=== PATIENT | female | born 1995 | race Caucasian/White ===

== ENCOUNTER 2020-02-14 12:58 | Inpatient (IN) ==
[2020-02-14] MEDS ORDERED: ONDANSETRON 4 MG/2 ML VIAL IV PRN (13:18)
[2020-02-14] MEDS ORDERED: BUTORPHANOL 2 MG/ML VIAL IV PRN (13:18)
[2020-02-14] MEDS ORDERED: DINOPROSTONE VAG GEL 10 MG SYRINGE VAG ONE (13:20)
[2020-02-14] MEDS ORDERED: LACTATED RINGERS 1,000 ML IV SCH (13:30)
[2020-02-14 13:43] LABS: Basophils % 0.2 % (0.0-0.8); Eosinophils # 0.1 10*3/uL (0.0-0.87); Eosinophils % 1.3 % (0.00-10.9); Hemoglobin 12.5 GM/DL (12.0-16.0); Immature Granulocytes % 0.3 %; Immature Granulocytes Absolute 0.03 #; Lymphocytes # 1.9 10*3/uL (1.4-4.0); Lymphocytes % 20.7 % (21.3-54.2); Mean Corpuscular HGB Conc 33.8 GM/DL (32-36); Mean Corpuscular Volume 92.7 FL (87-102); Mean Platelet Volume 9.8 FL (9.6-12.0); Monocytes % 5.9 % (1.7-12.7); Neutrophils % 71.6 % (38.7-73.9); Platelet Count 248 T/CUMM (130-400); Red Blood Count 3.99 MC/CUMM (3.8-5.5); Red Cell Distribution Width 12.5 % (9.3-17.3); White Blood Count 9.3 T/CUMM (4-12)
[2020-02-14 14:02] LABS: Alanine Aminotransferase 20 U/L (13-56); Alkaline Phosphatase 149 U/L (45-117); Aspartate Amino Transferase 15 U/L (0-37); Bilirubin,Total < 0.39 MG/DL (0.2-1.0); Blood Urea Nitrogen 7 MG/DL (7-18); Calcium 8.7 MG/DL (8.5-10.1); Estimated Glom Filtration Rate 117 ML/MIN; Glucose 103 MG/DL (74-106); Total Protein 7.2 G/DL (6.4-8.3)
[2020-02-15] MEDS: OXYTOCIN/LR 20 UNIT/1,000 ML BAG IV SCH ×2 (01:49→15:26)
[2020-02-15] MEDS: MEPERIDINE 50 MG/1 ML VIAL IV PRN ×2 (01:50→06:08)
[2020-02-15] MEDS ORDERED: FAMOTIDINE 20 MG/2 ML VIAL IV ONE (07:25)
[2020-02-15] MEDS ORDERED: NALOXONE 0.4 MG/ML VIAL IV PRN (07:25)
[2020-02-15] MEDS ORDERED: PROMETHAZINE 25 MG/1 ML VIAL IM ONE (07:25)
[2020-02-15] MEDS ORDERED: LACTATED RINGERS 1,000 ML IV ONE (07:25)
[2020-02-15] MEDS ORDERED: ePHEDrine 50 MG/ML AMP IV PRN (07:25)
[2020-02-15] MEDS ORDERED: CITRIC ACID/SODIUM CITRATE 30 ML UDCUP PO ONE (07:25)
[2020-02-15] MEDS ORDERED: hydrOXYzine HCL 25 MG/1 ML VIAL IM PRN (07:25)
[2020-02-15] MEDS ORDERED: diphenhydrAMINE 50 MG/1 ML VIAL IV PRN ×2 (07:25)
[2020-02-15] MEDS ORDERED: fentaNYL 2 MCG/ROPIV 0.2% EPID 100 ML EPIDURAL SCH (07:30)
[2020-02-15 10:49] LABS: Apearance,Urine CLEAR (Clear); Bilirubin,Urine Negative (Negative); Blood, Urine Negative (Negative); Glucose,Urine (UA) Negative (Negative); Ketones,Urine 5 mg/dL (Negative); Mucus,Urine Occasional /LPF (Occasional); Nitrite,Urine Negative (Negative); Protein,Urine Negative; RBC,Urine 1 /HPF (0-4); Squamous Epithelial Cell,Urine Occasional /HPF (0-10); Urine Color Yellow (Yellow); Urine Specific Gravity 1.019 (1.001-1.035); Urine Urobilinogen < 2.0 EU/DL (0.2-1.0)
[2020-02-15] MEDS ORDERED: METHYLERGONOVINE 0.2 MG/1 ML AMP ONE (11:34)
[2020-02-15] MEDS ORDERED: miSOPROStoL 200 MCG TABLET ONE (11:34)
[2020-02-15] MEDS ORDERED: TRANEXAMIC ACID 1,000 MG/10 ML VIAL ONE (11:34)
[2020-02-15] MEDS ORDERED: OXYTOCIN/LR 20 UNIT/1,000 ML BAG IV ONE ×2 (11:34→16:45)
[2020-02-15] MEDS ORDERED: CARBOPROST TROMETHAMINE 250 MCG/ML AMP IM ONE (11:35)
[2020-02-15 12:44] LABS: Cord Arterial Blood HCO3 20.5 MMOL/L
[2020-02-15 12:46] LABS: Cord Venous Blood HCO3 19.6 MMOL/L; Cord Venous Blood PCO2 51.1 MMHG; Cord Venous Blood PO2 28.7
[2020-02-15] MEDS ORDERED: IBUPROFEN 800 MG TABLET PO ONE (13:31)
[2020-02-15] MEDS ORDERED: BISACODYL 10 MG SUPP RECTAL PRN (16:45)
[2020-02-15] MEDS ORDERED: WITCH HAZEL PADS 100/JAR TOP PRN (16:45)
[2020-02-15] MEDS ORDERED: HYDROCORTISONE 2.5% RECTAL CREAM 30 GM TUBE TOP PRN (16:45)
[2020-02-15] MEDS ORDERED: ACETAMINOPHEN 325 MG TABLET PO PRN (16:45)
[2020-02-15] MEDS ORDERED: RHO(D) IMMUNE GLOBULIN 300 MCG SYRINGE IM ONE (16:45)
[2020-02-15] MEDS ORDERED: oxyCODONE/ACETAMINOPHEN 5-325 MG TABLET PO PRN (16:45)
[2020-02-15] MEDS ORDERED: BENZOCAINE 20%/MENTHOL 0.5% SPRAY 56 GM CAN TOP PRN (16:45)
[2020-02-15] MEDS ORDERED: MEASLES/MUMPS/RUBELLA VACCINE 0.5 ML VIAL SUBCUT ONE (16:45)
[2020-02-15] MEDS ORDERED: LANOLIN 50% CREAM 0.3 OZ TUBE TOP PRN (16:45)
[2020-02-15] MEDS ORDERED: DIPH/TET/ACEL PERT BOOSTER VACCINE 0.5 ML VIAL IM ONE (16:45)
[2020-02-15] MEDS: DOCUSATE SODIUM 100 MG CAPSULE PO SCH (22:06)
[2020-02-15] MEDS: IBUPROFEN 800 MG TABLET PO PRN (22:06)
[2020-02-16] MEDS: IBUPROFEN 800 MG TABLET PO PRN ×3 (04:38→20:16)
[2020-02-16] MEDS: oxyCODONE/ACETAMINOPHEN 5-325 MG TABLET PO PRN ×3 (04:39→23:48)
[2020-02-16 07:44] LABS: Basophils % 0.2 % (0.0-0.8); Eosinophils # 0.2 10*3/uL (0.0-0.87); Eosinophils % 1.1 % (0.00-10.9); Hematocrit 33.9 VOL% (35.7-47.0); Hemoglobin 11.6 GM/DL (12.0-16.0); Immature Granulocytes % 0.4 %; Immature Granulocytes Absolute 0.05 #; Lymphocytes # 1.7 10*3/uL (1.4-4.0); Lymphocytes % 12.5 % (21.3-54.2); Mean Corpuscular HGB Conc 34.2 GM/DL (32-36); Mean Corpuscular Volume 92.9 FL (87-102); Mean Platelet Volume 10.1 FL (9.6-12.0); Monocytes % 9.3 % (1.7-12.7); Neutrophils % 76.5 % (38.7-73.9); Platelet Count 225 T/CUMM (130-400); Red Blood Count 3.65 MC/CUMM (3.8-5.5); Red Cell Distribution Width 12.4 % (9.3-17.3); White Blood Count 13.7 T/CUMM (4-12)
[2020-02-16] MEDS: DOCUSATE SODIUM 100 MG CAPSULE PO SCH ×2 (09:54→20:16)
[2020-02-17] MEDS: IBUPROFEN 800 MG TABLET PO PRN (05:15)
[2020-02-17] MEDS: oxyCODONE/ACETAMINOPHEN 5-325 MG TABLET PO PRN (05:15)
[2020-02-17] MEDS: DOCUSATE SODIUM 100 MG CAPSULE PO SCH (09:33)
[2020-02-17 10:41] VITALS: BP 125/76
== END 2020-02-17 13:00 | disposition home or self-care (01) | DRG 806 ==
LOC: N.LDOUT 12:58 → N.LD 13:02 → N.OB 02-15 16:35
PROVIDERS: ADMIT Obstetrics & Gynecology; ATTEND Obstetrics & Gynecology